=== PATIENT | male | born 1975 | race Caucasian/White ===

== ENCOUNTER 2020-10-25 20:24 | Emergency (ER) | payer SELFPAY ==
[~2020-10-25] VITALS: Ht 180.3 cm; Wt 106.0 kg
[2020-10-25 20:40] VITALS: BP 135/84
[2020-10-25] MEDS ORDERED: PRED-220 PO (20:48)
[2020-10-25] MEDS ORDERED: HYDR25TA PO (20:48)
--- NOTE | 2020-10-25 20:49 | PHYS DOC ---
Adult General Chief Complaint Chief Complaint: SKIN RASH/ABSCESS HPI HPI Patient is a 44-year-old male patient presenting to the ED today with with a rash throughout his body that began on Tuesday this week after smoking methamphetamine. Patient states he was already seen at [facility] and was started on Bactrim, doxycycline, permethrin, prednisone twice a day and trazodone. Patient returns stating the rash has not cleared. Denies any fever. Denies any drainage. (LYNDON BERMUDEZ APRN) Review of Systems Review of Systems Constitutional: Denies fever or chills [] : Denies dysuria or hematuria [] Musculoskeletal: Denies back pain or joint pain [] Integument: Reports rash Neurologic: Denies headache, focal weakness or sensory changes [] All other systems were reviewed and found to be within normal limits, except as documented in this note. (LYNDON BERMUDEZ APRN) Physical Exam Physical Exam Constitutional: Well developed, well nourished, no acute distress, non-toxic appearance. [] Skin: Moderate amount of erythematous rash throughout patient's body with the exception of the groin which was not examined. No drainage. Back: No tenderness, no CVA tenderness. [] Extremities: No tenderness, no cyanosis, no clubbing, ROM intact, no edema. [] Neurologic: Alert and oriented X 3, normal motor function, normal sensory function, no focal deficits noted. [] Psychologic: Affect normal, judgement normal, mood normal. [] (LYNDON BERMUDEZ APRN) EKG EKG [] (LYNDON BERMUDEZ APRN) Radiology/Procedures Radiology/Procedures [] (LYNDON BERMUDEZ APRN) Heart Score Risk Factors: Risk Factors: DM, Current or recent (<one month) smoker, HTN, HLP, family history of CAD, obesity. Risk Scores: Risk Factors: DM, Current or recent (<one month) smoker, HTN, HLP, family history of CAD, obesity. (LYNDON BERMUDEZ APRN) Course & Med Decision Making Course & Med Decision Making Pertinent Labs and Imaging studies reviewed. (See chart for details) This is a 44-year-old male patient presented to the ED today complaining of a rash that began on Tuesday after using methamphetamine. Patient was seen at a different clinic on Thursday this week, was started on Bactrim, doxycycline, prednisone twice a day, trazodone to help him sleep, and permethrin. He states symptoms have not cleared. He states he only took the prednisone for one day. Patient is in no distress, he has no fever. I encouraged him to continue taking the medicines he got. He states he needs something to help clear the rash. I offered him a steroid injection in the ED and encouraged him to continue taking the medicines he has. He states the prednisone he has is not helping. Gave him prescription for tapered dose of prednisone and hydroxyzine. Encouraged him not to do any methamphetamine. Lap Cutter provided for follow up (LYNDON BERMUDEZ APRN) Dragon Disclaimer Dragon Disclaimer This electronic medical record was generated, in whole or in part, using a voice recognition dictation system. (LYNDON BERMUDEZ APRN) Departure Departure: Impression: Primary Impression: Rash Additional Impression: Methamphetamine use Disposition: 01 DC HOME SELF CARE/HOMELESS Condition: STABLE Referrals: PCP,NO (PCP) BRENDA WINKLER MD please follow up with the dermatolgist provided in 2-4 weeks Patient Instructions: Rash, [id number] Additional Instructions: You were seen for rash, this rash will not clear anytime soon but we encourage you to continue taking the medicines you got at [facility] and [facility]. Please substitute the prednisone for tapered dose of prednisone. Take hydroxizine as needed for itching/rash Scripts Prednisone (PREDNISONE) 10 Mg Tablet 10 MG PO UD for PREDNISONE TAPER, #39 TAB 0 Refills Take 3 tablets by mouth twice a day for 3 days, then take 2 tablets by mouth twice a day for 3 days, then take 1 tablet by mouth twice a day for 3 days, then take 1 tablet by mouth daily x 3 days, then stop. Prov: LYNDON BERMUDEZ APRN 10/25/20 Hydroxyzine Hcl (HYDROXYZINE HCL) 25 Mg Tablet 1 TAB PO TID, #90 TAB 0 Refills Prov: LYNDON BERMUDEZ APRN 10/25/20 Attending Signature Attending Signature I have participated in the care of this patient and I have reviewed and agree with all pertinent clinical information above including history, exam, and recommendations. (AMBER BARNES MD) Problem Qualifiers LYNDON BERMUDEZ APRN Oct 25, 2020 20:49 AMBER BARNES MD Oct 26, 2020 01:44
[2020-10-25] MEDS ORDERED: DEXAMETHASONE SOD PHOS 10 MG/ML VIAL. IM ONE (21:00)
== END 2020-10-25 20:55 | disposition home or self-care (01) ==
LOC: ER 20:24
DX: R21 Rash and other nonspecific skin eruption (principal); F15.90 Other stimulant use, unspecified, uncomplicated
CPT/HCPCS: 96372; 99283; J1100